=== PATIENT | male | born 1945 | race Caucasian/White ===

== ENCOUNTER 2024-12-14 10:07 | Outpatient (OUT) | payer MEDICARE, SELFPAY ==
--- OUTSIDE RECORDS SUMMARY | 2024-12-06 19:40 | XMS_ITS | Continuity of Care Document ---
Author Organization [facility] Address [address] [place] [address] Phone Care Team Providers Care Pipe Joints Supervisor Name Role Phone Davy Thompson DO Primary Care Provider Casimiro Arredondo MD Referring Provider [phone] Chelsea Kline [facility] Attending Provider Antonella Lock [facility] Attending Provider Unavailable Shayan Wiseman MD Attending Provider Care Teams Patient Care Team Team Status: Active Member Role/Relationship Status Dates Davy Thompson DO Primary Care Provider Active Visit Care Team Team Status: Inactive Member Role/Relationship Status Dates Davy Thompson DO Primary Care Provider Active St art: September 21, 2024 End: September 21, 2024HaRobert Tinsley ProviderActiveStart: September 21, 2024 End: September 21, 2024JaEdu Samson ProviderActiveStart: September 21, 2024 End: September 21, 2024 Visit Care Team Team Status: Inactive Member Role/Relationship Status Dates Davy Thompson DO Primary Care Provider Active St art: October 25, 2024 End: October 25, 2024DaSARAH Torresttending ProviderActiveStart: October 25, 2024 End: October 25, 2024HaCHELE Tinsleyeflarisaing ProviderActiveStart: October 25, 2024 End: October 25, 2024 Visit Care Team Team Status: Inactive Member Role/Relationship Status Dates Davy Thompson DO Primary Care Provider Active St art: October 25, 2024 End: October 25, 2024PaMayra Weinberg ProviderActiveStart: October 25, 2024 End: October 25, 2024 Visit Care Team Team Status: Inactive Member Role/Relationship Status Dates Davy Thompson DO Primary Care Provider Active St art: November 29, 2024 End: November 29, 2024HaGaby Tinsleying ProviderActiveStart: November 29, 2024 End: November 29, 2024JaSandra Samsonending ProviderActiveStart: November 29, 2024 End: November 29, 2024 Visit Care Team Team Status: Inactive Member Role/Relationship Status Dates Davy Thompson DO Primary Care Provider Active St art: December 06, 2024 End: December 06, 2024PaMayra Weinberg ProviderActiveStart: December 06, 2024 End: December 06, 2024 Chief Complaint and Reason for Visit Chief Complaint Admit Date INR f/u September 21, 2024 11 :34am INR f/u see [facility] October 25, 2024 10:58am R97.20 N40.1 Z80.42 October 25, 2024 11:23am R97.20 Z80.42 December 06, 2024 9 :38am Reason for Visit Admit Date Atrial fibrillation September 21, 2024 11 :34am Atrial fibrillation October 25, 2024 10:58am Atrial fibrillation November 29, 2024 1 :12pm Allergies, Adverse Reactions, Alerts Allergen Type Severity Reaction Last Updated Verified Status Comments sulfamethoxazole Allergy Unknown Nausea, dizziness, antsy feeling August 23, 2024 1:02pm Yes Active Onset Date: 07/24/2019 Social History Smoking Status Status Start Date End Date Date of Observa tion Ex-smoker (finding) November 27, 2021 7:22am Observation Status Observation Response Date of Response Legal Sex Male (finding) Sex Assigned [facility] 1945 Family History Relationship Condition Age at Onset Recorded Date/T karla brother Malignant neoplasm of prostate Unknown Malignant neoplasm of lymph nodeUnknownfatherMalignant neoplasm of prostate UnknownDeceasedUnknownmotherMalignant neoplasm of colonUnknownFamily history of mental disorderUnknownAlzheimer's diseaseUnknownDeceasedUnknownbrotherDeceased Unknown Problems Active Problems Problem Diagnosis/Recorded Date Onset Date Stat Family history of colon cancer October 21, 2020 9: 36am Unknown Active Atrial fibrillation July 01, 2018 6:08am Unknown Active Bleeding hemorrhoid August 25, 2023 1:23pm Unknown Active Fecal incontinence October 21, 2020 9:36am Unknown Active Blood in stool October 21, 2020 9:36am Unknown Active Medications Medication Status Dose Units Route Directions Qty Days Refills S tart Date Stop Date End Date Reason(s) Instructions Adherence Atorvastatin 20 mg tablet Discontinued 20 MG PO D aily August 06, 2017 12:00amFebruary 2023 3:56pmAtorvastatin 20 mg tabletActive 0PODailyFebruary 2023 3:94nu53za (1/2 tablet) orally daily;Unknown Oxycodone 5 mg capsuleDiscontinued5 - 75UADAS3H as needed for zfyh5420Hnj 2018December 2018 12:16pmSpondylosis of lumbar spine Spondylosis without myelopathy or radiculopathy, lumbar regionPolyethylene Glycol 3350 17 gram/dose npmhajOarkjiyacdqe21EYKACeiau2489Cwshytq 2020 12:00amOctober 2021 7:21amLidocaine 5 % jcisqmloZcqnnn7TIAPNWVBGRVVAZxmi times daily as needed for bjcm382Podbqtc 2020 12:00amUnknownPolyethylene Glycol 3350 17 gram/dose kvunuoFgdbcm16QFTXZpejn as needed for Constipation November 27, 2021 7:21amUnknownSimvastatin 80 MG urovpmJlxvqxroskal43PGJIQvshw January 08, 2017 1:00amJune 2017 6:44amWarfarin 4 mg TabletDiscontinued4 MGPO5 TIMES PER WEEKDe2016 1:00amFebruary 2023 3:56pmAtrial fibTakes 4 mg every day EXCEPT Wednesday and Potassium Chloride 20 MEQ tablet,ER particles/uookbomhOtlqba42KQONLQpapkOtwojojw 1st, 2017 1:00amUnknown Pantoprazole 40 MG tablet,delayed release (DR/EC)Addxpm14URUDHsthlVpuxtoyg 1st, 2017 1:00amGERDUnknownVerapamil 240 MG tablet extended cfvwtibEcfkixdqrihd623IR POEvery 2016 1:00amFebruary 2023 3:50pm Cholecalciferol (Vitamin D3) (Vitamin D3) 1,000 unit IarknvAaqsyq5754XVPFSUBuzyd January 08, 2017 1:00amUnknownWarfarin 4 mg fbnvuoIxbpyn4NXUXBh Directed March 24, 2023 3:54pmAtrial fibTake 1/2 tablet on and and 1 tablet all other days of the week or UD by the Coumadin ClinicUnknownCoenzyme Q10 (Co Q-10) 10 mg NwneguqJalwsa62GMLBJl DirectedJuly 2017 12:00amUnknown Ascorbic Acid (Vitamin C) (Vitamin C) 500 mg DxxwvwGgzymf944TREONiitqTqnv 2017 12:00amUnknownSaw Pal-Pumpkin Wf-Fwhd-J5-Zn (Saw Bennet Complex(Pumpk- Zn)) 764-81-74-15 mg KkkosexZiipnb4IAHIFScvkw dailyJuly 2017 12:00am Prostate healthUnknownWarfarin 2 mg LkxodlKlrfiekrxbqj0ZPLSLbzfp a WeekJuly 2017 12:00amFebruary 2023 3:51pmAtrial fib.Takes 2 mg on Wednesday and ;4 mg all other daysAspirin 81 mg Tablet,Delayed Release (Dr/Ec)Gmpnmr13 MGPOevery weekAugust 2017 12:00amUnknownAcetaminophen (Tylenol Extra Strength) 500 mg HwtwhoGyopxa5506TUROU0P as needed for PainAugust 2017 12:00amUnknownEzetimibe 10 mg pwfwbaUtmuvt60BRWISpaqtOsoenwnya 2020 12:00amUnknownFluticasone Propionate 50 mcg/actuation spray,suspensionActive1 SPRAYINTRANASALDailyJuly 2023 12:00amadminister into each nostrilUnknown Metoprolol Succinate 50 mg tablet extended release 24 wtNyxfxd5ANSUSIjjwm March 24, 2023 1:00amFreeTextSi tablet Orally Once a day; Note: Source Status: Taking; Provider: Eliud Tran ( )Unknown L.Rhamnosus-B.Animalis ([facility]) 3 billion cell capsuleActiveCAP PODailyAugust 2023 12:00amUnknownAmlodipine-Benazepril 5-10 mg capsule Gjhssx2IUXHDXjesxHzqqdymeu 2023 12:00amUnknown Immunizations Immunization Event Date Not Given Reason Dose Number Lead Presser Lot Number Reason(s) Given Vaccine Information Statement (VIS) Detail Administration Location COVID-19 mRNA-1273 (Moderna) April 06, 2020 COVID-19 mRNA-1273 (Moderna)May 04, 2020influenza, unspecified formulation November 10, 2017 Procedures Procedure Date Performed Status MR prostate wo/w con December 06, 2024 9:41am c ompleted Relevant Diagnostic Tests and/or Laboratory Data Laboratory Results Test Collection Date/Time Result Date/Time Result Interpretation Reference Range Result Comment Performing Site Bedside INR (LAB) September 21, 2024 11:59am September 21, 2 025 11:59am 2.3 Bedside INR (LAB)November 29, 2024 1:23pmOctober 2024 1:33pm2.4Prostate Specific Antigen TotalSeptember 2024 11:30amSeptember 2024 12:54pm 4.130 ng/mLAbove high normal0.000-4.000Serial tumor marker results determined by assays using different manufacturers or methods may not be comparable.[facility] Laboratory mechanic field service and method:[employer] Keyboard DXI, CHEMILUMINESCENT IMMUNO ASSAY.[facility] [id number] [address] [place] [address] 96838Dxamrpr CreatinineOctober 2024 9:58amOctober 2024 11:17am1.2 mg/dL0.6-1.3ER/ESD physician is notified/shown all ISTAT results.Critical values may be confirmed by laboratorytesting ifdeemed necessary by ER attending doctor.[facility] [id number] [address] [place] [address] [id number] Estimated GFR (eGFR)December 06, 2024 9:58amOctober 2024 11:17am> 60.0[facility] [id number] [address] [place] [address] Diagnostic Imaging Reports Author Herman Keene [facility] HospitalReport Date/TimeOctober 2024 2:10pm [facility] [place] [address] [place] [id number] MRI Report Signed Patient: Samy Berry MR#: [id number] : 1945 Acct:[id number] Age/Sex: 79 / M ADM Date: 5 Loc: MR Room: Type: [facility] Attending Dr: Shayan Wiseman MD Copies to: Shayan Wiseman MD~ Ordering Provider: Shayan Wiseman MD Date of Service: 12/06/24 MR/MR prostate wo/w con: R97.20,Z80.42 EXAMINATION: MR prostate wo/w con HISTORY: ELEVATED PSA COMPARISON: NONE TECHNIQUE: Multiparametric imaging of the prostate gland was performed with IV contrast. FINDINGS: Prostate Dimensions: 4.4 x 4.1 x 4.7 cm Prostate Volume: 44 mL. Peripheral Zone: Heterogenous inT2 signal suggestive of prior prostatitis. Nosuspicious T2 or ADC map abnormality is identified to suggest prostate malignancy. Central/Transitional Zone: BPH changes. Ill-defined area of T2 hypointensity is seen involving the anterior aspect of the right transitional zone measuring 9x 7 mm with associated restricted diffusion and low ADC value. Please see series 417, series 650 image 14 and series 600 image 14. Seminal Vesicles: Unremarkable Neurovascular bundles: Unremarkable. Lymphadenopathy: No evidence of lymphadenopathy. Bladder: Questionable small bladder polyp versus mass involving the posterior right lateral wall ofthe urinary bladder measuring 7 mm in greatest axial dimension. Bladder peace overall trabeculated. Bowel: Diverticulosis. Peritoneal Cavity: Small amount of free fluid. Bones: No suspicious bony lesion. MR/MR prostate wo/w con IMPRESSION: Ill-defined area of T2 hypointensity is seen involving the anterior aspect of the right transitional zone measuring 9 x 7 mm with associated restricted diffusion and low ADC value. Please see series 417, series 650 image 14 and series 600 image 14. PI-RADS 4. Targeting of this area on biopsy is recommended. Questionable small bladder polyp versus mass involving the posterior right lateral wall of the urinary bladder measuring 7 mm in greatest axial dimension. This can be further evaluated by cystoscopy. Impression dictated by: Herman Keene Jr., D.OVioleta 12/06/2024 2:10 PM Dictation Location: [place] [address] Transcribed By: [facility] 12/06/24 1410 Dictated By: Herman Keene Jr, DO 12/06/24 1404 Signed By: <Electronically signed by Herman Keene Jr, DO in OV> 12/06/24 1410 Vital Signs Vital Reading Result Reference Range Collection Date/Time Height 68 [in_i] December 06, 2024 9:00stHnpvnm16.01 kgOctober 2024 9:51am Advance Directives Advance Directive Response Recorded Date/ Time Advance Directives No December 2:16pm Insurance Providers Guarantor Samy Jennifer Berry Address [address] [address]Hklimkp Info.Home Phone: Payer Group Member ID Coverage Type Subscriber Relationship to Subscriber Effective Date Expiration Date MMO Id: [id number] J Sidoti Id: [id number] [address] [address] Home Phone: Email: DECLINED 19[employer] [id number] J Sidoti Id: [id number] [address] [address] Home Phone: Email: DECLINED 19Self Encounters Encounter Location(s) Arrival/Admit Date Discharge/Departure Date Discharge/Departure Disposition Provider(s) Departed Physician/ Provider Office Visit -[facility] September 21, 2024 11:34am September 21, 2024 11:59am Discharged to home care or self care (routine discharge) Chelsea Kline RPH Departed Physician/ Provider Office Visit -[facility] October 25, 2024 10:58am October 25, 2024 11:18am Discharged to home care or self care (routine discharge) Antonella Purvis RPH Departed Clinical -[facility] October 25, 2024 11:23am October 25, 2024 11:24am Discharged to home care or self care (routine discharge) Shayan Wiseman MD Departed Physician/ Provider Office Visit -[facility] November 29, 2024 1:12pm November 29, 2024 1:34pm Discharged to home care or self care (routine discharge) Chelsea Kline RPH Departed Clinical -[facility] December 06, 2024 9:38am December 06, 2024 9:39am Discharged to home care or self care (routine discharge) Shayan Wiseman MD Recent Diagnosis Onset Date Admit Date Atrial fibrillation Unknown September 21, 2024 11:34am Atrial fibrillation Unknown October 252024 10:58am Atrial fibrillation Unknown November 1:12pm Assessments Diagnosis Onset Date Resolution Status Admit Date [place]rial [place] 11:34amAtrial fibrillationacuteSeptember 2024 10:58amAtrial fibrillationacuteOctober 2024 1:12pm Plan of Treatment Author Chelsea Kline [facility] 2024 11:58amReferring Provider: Dr. Casimiro Arredondo Diagnosis: Atrial Fibrillation INR Goal: 2-3 INR: 2.3 Warfarin Tablet Size: 4mg Wednesday: 4mg Wednesday: 4mg Wednesday: 2mg Wednesday: 4mg : 2mg Wednesday: 4mg Wednesday: 4mg Total Weekly Dose: 24mg Continue plan above. Follow up in 5 weeks per patient preference. Seen By: Aurelia Kline RPh Author Antonella Purvis [facility] 2024 11:17amReferring Provider: Dr. Casimiro Arredondo Diagnosis: Atrial Fibrillation INR Goal: 2-3 INR: 2.9 Warfarin Tablet Size: 4mg Wednesday: 4mg Wednesday: 4mg Wednesday: 2mg Wednesday: 4mg : 2mg Wednesday: 4mg Wednesday: 4mg Total Weekly Dose: 24mg Continue plan above. Follow up in 5 weeks per patient preference. Patient finished Medrol Dosepak yesterday and is feeling better. He followed the warfarin adjustment as instructed (see [facility] message below from 10/20). On 10/20/24 @ 09:20 Chelsea Kline Wrote To [facility] Pharmacists Spoke to patient. Patient reports neck pain and taking several doses of APAP daily in addition to the new medications. DDI with APAP and methylprednisolone and pain can potentially increase INR. Patient will reduce Sat 10/21 dose to 2mg and maintain f/u on 10/25. Patient verbalized understanding. Seen By: Antonella Purvis RPh Author Chelsea Kline [facility] HospitalAuthoredOctrockcastle [facility] 2024 1:29pmReferring Provider: Dr. Casimiro Arredondo Diagnosis: Atrial Fibrillation INR Goal: 2-3 INR: 2.4 Warfarin Tablet Size: 4mg Wednesday: 4mg Wednesday: 4mg Wednesday: 2mg Wednesday: 4mg : 2mg Wednesday: 4mg Wednesday: 4mg Total Weekly Dose: 24mg Continue plan above. Follow up in 5 weeks per patient preference. Seen By: Aurelia Kline RPh Future Tests Future scheduled test information is unavailable Pending Tests Pending diagnostic test information is unavailable Future Visits Future appointment information is unavailable Future Procedures Procedure Name Ordered Date Scheduled Date AMB POC INR October 25, 2024 11:03am Future Medications Future medication information is unavailable Patient Instructions Patient instructions are unavailable
--- OUTSIDE RECORDS SUMMARY | 2024-12-14 10:11 | XMS_ITS | Clinical Summary ---
Author Organization [facility] Address [address] [place] [address] Phone Care Team Providers Care Graphite Disk Assembler Name Role Phone Davy Thompson DO Primary Care Provider [phone] Allergies Active AllergyReactionsCriticalityNoted DateCommentsMetronidazoleUnknown 12/09/2022Sulfa (Sulfonamide Antibiotics)Headache,Nausea Only12/09/2022 Medications MedicationSigDispense QuantityRefillsLast FilledStart DateEnd DateStatus ascorbic acid, vitamin C, 500 mg capsule Take 1 capsule by mouth once daily.Active aspirin 81 mg EC tablet Take 1 tablet (81 mg) by mouth 1 (one) time per week.Active cholecalciferol (Vitamin D3) 50 mcg (2,000 unit) capsule Take 1 capsule (50 mcg) by mouth once daily.Active clotrimazole-betamethasone (Lotrisone) cream Apply topically 2 times a day. to affected area01/19/2022ctive fluticasone (Flonase) 50 mcg/actuation nasal spray Administer 2 sprays into affected nostril(s) once daily.06/28/2022ctive triamcinolone (Kenalog) 0.1 % cream Apply topically 2 times a day.10/22/2022ctive ubidecarenone (COENZYME Q10, BULK, MISC) Take 1 capsule by mouth once daily.Active warfarin (Coumadin) 4 mg tablet Indications:Chronic atrial fibrillation (Multi)Take 1 tablet (4 mg) by mouth see administration instructions. DIRECTED PER [facility] 60 tablet ctive ezetimibe (Zetia) 10 mg tablet Indications:Mixed hyperlipidemiaTake 1 tablet (10 mg) by mouth once daily. 90 tablet ctive amLODIPine-benazepriL (LotreL) 5-10 mg capsule Indications:Essential hypertensionTake 1 capsule by mouth once daily. 90 capsule ctive atorvastatin (Lipitor) 20 mg tablet Indications:Mixed hyperlipidemiaTake 0.5 tablets (10 mg) by mouth once daily. 45 tablet ctive metoprolol succinate XL (Toprol-XL) 50 mg 24 hr tablet Indications:Permanent atrial fibrillation (Multi)Take 1 tablet (50 mg) by mouth once daily. Do not crush or chew. 90 tablet ctive pantoprazole (ProtoNix) 40 mg EC tablet Indications:History of stroke,AnticoagulatedTake 1 tablet (40 mg) by mouth once daily. 90 tablet ctive potassium chloride CR (Klor-Con M20) 20 mEq ER tablet Indications:Essential hypertension,Edema, unspecified typeTake 1 tablet (20 mEq) by mouth once daily. 90 tablet ctive Active Problems ProblemNoted DateDiagnosed DateFormer wqxjoc154Carotid bruit present 12/09/2022hronic atrial nyclkwfivibf22/01/2023Essential akzkwkwaeooq70/01/2023 GERD (gastroesophageal reflux disease)12/09/20229040Bxometlphebeka56/01/2023 Fpnsdhaqakbcow03/01/2023hest pain12/09/20224208Ujvgd92/01/2023MI 26.0-26.9,adult 12/09/2022 Resolved Problems ProblemNoted DateDiagnosed DateResolved DateHigh risk medication use12/09/2022 09/22/2024Overweight with body mass index (BMI) of 26 to 26.9 in adult12/09/2022 12/09/2022Overweight with body mass index (BMI) of 27 to 27.9 in adult12/09/2022 12/09/2022 Encounters DateTypeDepartmentCare LkmuYaxqbazssjl81/15/2025 1:50 PM EDTOffice Visit [place] [id number] [address] [address] Casimiro Arredondo MD Permanent atrial fibrillation (Multi) (Primary Dx); Essential hypertension; History of stroke; Mixed hyperlipidemia; Anticoagulated; BMI 26.0-26.9,adult; Former smoker; Edema, unspecified type; Pulmonary hypertension, unspecified (Multi); Moderate tricuspid regurgitation Discharge Disposition: Home09/22/2024Travelfrom Last 3 Months Immunizations ImmunizationAdministration DatesNext DueFlu vaccine (IIV4), preservative free *Check age/dose*11/20/2019Flu vaccine, quadrivalent, high-dose, preservative free, age 65y+ (FLUZONE)12/11/2020,10/26/2019Flu vaccine, trivalent, preservative free, HIGH-DOSE, age 65y+ (Fluzone)10/20/2023,11/21/2018,11/10/2017 ,11/09/2016,10/30/2015Influenza, Seasonal, Quadrivalent, Ublevlbiom21/09/2023, 12/03/2021Influenza, seasonal, ejcmkxrtqh53/26/2022,11/09/2019Moderna COVID-19 vaccine, bivalent, blue cap/anne label *Check age/dose*12/15/2021Moderna SARS-CoV-2 Soewzcuodfy98/28/2021,05/06/2020,05/04/2020,04/06/2020,04/06/2020 Pneumococcal conjugate vaccine, 13-valent (PREVNAR 13)06/09/2016Pneumococcal polysaccharide vaccine, 23-valent, age 2 years and older (PNEUMOVAX 23) 11/09/2013Tdap vaccine, age 7 year and older (BOOSTRIX, ADACEL)09/11/2024Zoster vaccine, recombinant, adult (SHINGRIX)10/17/2018 Family History Medical HistoryRelationNameCommentsNo Known ProblemsFatherNo Known Problems MotherRelationNameStatusCommentsFatherMother Social History Tobacco UseTypesPacks/DayYears UsedDateSmoking Tobacco: FormerCigarettesQuit: 1995Smokeless Tobacco: Never Tobacco Cessation:Counseling Given: Not Answered Alcohol UseStandard Drinks/WeekCommentsYes0 (1 standard drink = 0.6 oz pure alcohol)occasional beerSex and Gender InformationValueDate RecordedSex Assigned at BirthNot on fileLegal PtkItjj79/25/2022 6:12 PM ESTGender IdentityNot on file Sexual OrientationNot on file Last Filed Vital Signs Vital SignReadingTime TakenCommentsBlood Ndeniyap487/7208/ 1:47 PM EDT Wpcul3327 1:47 PM EDTTemperature--Respiratory Rate--Oxygen Saturation-- Inhaled Oxygen Concentration--Shjfqf52.5 kg (173 lb)09/22/2024 1:47 PM EDTHeight 172.7 cm (5' 8 )09/22/2024 1:47 PM EDTBody Mass Index26.308 1:47 PM EDT Plan of Treatment DateTypeDepartmentCare Team (Latest Contact Info)Pjvhysgeqcu26/14/2026 11:30 AM ESTOffice [facility] [address] [facility] [address] [place] [address] Casimiro Arredondo MD [address] [facility] [address] [place] [address] Health MaintenanceDue DateLast DoneCommentsHepatitis C Rjqcudclc36/02/1964Zoster Vaccines (2 of 2)RSV High Risk: (Elderly (60+) or Population) (1 - 1-dose 75+ series)1Diabetes Teqtvuvdw66/19/2022 06/26/2020, 07/13/2019, 01/02/2019, Additional history existsInfluenza Vaccine (#1)509/12/2023, 11/16/2022, 12/03/2021, Additional history exists COVID-19 Vaccine ( season)511/08/2021, 12/05/2020, 05/06/2020, Additional history existsMedicare Annual Wellness Visit (AWV) /, 12/03/2022, 06/30/2021, Additional history existsLipid Panel, 01/17/2024, 07/19/2023, Additional history exists DTaP/Tdap/Td Vaccines (2 - Td or Tdap)Pneumococcal Vaccine Hvzthjnkp89/02/2017, 11/09/2013Irritable Bowel SnxcoluoDhjvxrmwmaza33/13/2021, 10/21/2020Welcome to Medicare RfolfLbrmbugflwap27/17/2024, 12/03/2022, 06/30/2021, Additional history existsHIB VaccinesAged OutNo longer eligible based on patient's age to complete this topicHPV VaccinesAged OutNo longer eligible based on patient's age to complete this topicHepatitis A VaccinesAged OutNo longer eligible based on patient's age to complete this topicHepatitis B VaccinesAged OutNo longer eligible based on patient's age to complete this topic IPV VaccinesAged OutNo longer eligible based on patient's age to complete this topicMeningococcal VaccineAged OutNo longer eligible based on patient's age to complete this topicRotavirus VaccinesAged OutNo longer eligible based on patient's age to complete this topic Procedures Procedure NamePriorityDate/TimeAssociated DiagnosisCommentsHEMOGLOBIN K2QReduglz 06/26/2020 10:00 AM EDT LIPID TXVOJYsangya65/05/2020 9:30 AM EST from Last 3 Months or Most Recently Relevant to Health Maintenance Results * Hemoglobin A1C (06/26/2020 10:00 AM EDT)ComponentValueRef RangeTest Method Analysis TimePerformed AtPathologist SignatureHemoglobin A1C5.5%[facility] Comment: ? Diagnosis of Diabetes-Adults Non-Diabetic: < or = 5.6% Increased risk for developing diabetes: 5.7-6.4% Diagnostic of diabetes: > or = 6.5% . ? Monitoring of Diabetes ?Age (y) ? Therapeutic Goal (%) Adults: >18 <7.0 Pediatrics: 13-18 <7.5 7-12 <8.0 ? 0- 6 ?7.5-8.5 [place] [employer]. Diabetes Care 33(S1), Feb 2009. Estimated Average Wuoasbj757YJ/DLELLWOOD MEDICAL CENTER LABSpecimen (Source)Anatomical Location / LateralityCollection Method / VolumeCollection TimeReceived Time06/26/2020 10:00 AM EDT06/26/2020 9:14 PM EDT Narrative Authorizing ProviderResult TypeResult StatusPaul Herman Thompson [facility] BLOOD ORDERABLESFinal ResultPerforming OrganizationAddressCity/State/ZIP CodePhone Number [facility] * Lipid Panel (12/14/2019 9:30 AM EST)ComponentValueRef RangeTest MethodAnalysis TimePerformed AtPathologist NrvtijnaaZulsqppbjqe9329 - 199 mg/dLAD[facility] LABComment: . ?AGE ?DESIRABLE ?? BORDERLINE HIGH ?? HIGH 0-19 Y 0 - 169 170 - 199 >/= 200 20-24 Y 0 - 189 190 - 224 >/= 225 >24 Y 0 - 199 200 - 239 >/= 240 All ranges are based on fasting samples. Specific therapeutic targets will vary based on patient-specific cardiac risk. . Pediatric guidelines reference:Pediatrics 2011, 128(S5). Adult guidelines reference: NCEP ATPIII Guidelines, ??JOAN 2001, 258:2486-97 . Venipuncture immediately after or during the administration of Metamizole may lead to falsely low results. Testing should be performed immediately prior to Metamizole dosing. HDL59.0mg/dLADVENTHEALTH [facility] LABComment: . ?AGE ?VERY LOW ?? LOW ? NORMAL ?HIGH ?? 0-19 Y < 35 < 40 40-45 ---- 20-24 Y ---- < 40 >45 ---- >24 Y ---- < 40 40-60 >60 . Cholesterol/HDL Ratio2.9[facility] LABComment: REF VALUES DESIRABLE < 3.4 HIGH RISK > 5.0 NOH051 - 99 mg/dLADVENT[facility] LABComment: . ? NEAR ?BORD ?AGE ?DESIRABLE ??OPTIMAL ?HIGH ? HIGH ? VERY HIGH 0-19 Y 0 - 109 --- 110-129 >/= 130 ---- 20-24 Y 0 - 119 --- 120-159 >/= 160 ---- >24 Y 0 - 99 100-129 130-159 160-189 >/=190 . BTOH058 - 40 mg/dLAD[facility] JDASysrpwfptdazo818 - 149 mg/dLAD[facility] LABComment: . ?AGE ?DESIRABLE ?? BORDERLINE HIGH ?? HIGH ? VERY HIGH 0 D-90 D ?19 - 174 ? ---- ? ---- ?---- 91 D- 9 Y 0 - 74 75 - 99 >/= 100 ---- 10-19 Y 0 - 89 90 - 129 >/= 130 ---- 20-24 Y 0 - 114 115 - 149 >/= 150 ---- >24 Y 0 - 149 150 - 199 200- 499 >/= 500 . Venipuncture immediately after or during the administration of Metamizole may lead to falsely low results. Testing should be performed immediately prior to Metamizole dosing. Specimen (Source)Anatomical Location / LateralityCollection Method / Volume Collection TimeReceived Time12/14/2019 9:30 AM EST12/14/2019 6:01 PM EST Narrative Authorizing ProviderResult TypeResult StatusWiliz Almazan [facility] BLOOD ORDERABLESFinal ResultPerforming OrganizationAddressCity/State/ZIP CodePhone Number [facility] from Last 3 Months or Most Recently Relevant to Health Maintenance Insurance MemberSubscriberPlan / Payer (Effective 2021-Present)Name:Samy Berry Jennifer Relation to Subscriber:SelfName:Samy Berry Payer ID:Not on file Type:Not on file Address: [address] [place] [id number] MemberSubscriberPlan / Payer (Effective 2021-Present)Name:Samy Berry Jennifer Relation to Subscriber:SelfName:Samy Berry Payer ID:Not on file Type:Not on file Address: [address] [place] [id number] Care Teams Team MemberRelationshipSpecialtyStart DateEnd Davy Thompson DO [address] [place] [address] [facility]05/17/18
--- OUTSIDE RECORDS SUMMARY | 2024-12-14 10:11 | XMS_ITS | Clinical Summary ---
Author Organization [facility] Address [address] [place] [address] Care Team Providers Care Assistant Program Manager Name Role Phone Davy Thompson DO Unavailable [phone] Pk Fong DO Primary Care Provider [phone] Allergies Active AllergyReactionsCriticalityNoted HomiZragnyrkHfarejprictmq94/01/2023 Other Reaction(s): Unknown Sulfa AntibioticsHeadache,Nausea Only07/31/2022 Other Reaction(s): Nausea, dizziness, antsy feeling Sulfamethoxazole-Tnkjofvlypef31/15/2020 Other Reaction(s): dizziness, antsy feeling Cnfiatgkfkmw54/23/2023 Other Reaction(s): Nausea, dizziness, antsy feeling Medications MedicationSigDispense QuantityRefillsLast FilledStart DateEnd DateStatus coenzyme Q-10 60 MG capsule 1 (one) time each day at the same time.Active atorvastatin (Lipitor) 20 MG tablet 1 (one) time each day at the same time.Active ezetimibe (Zetia) 10 MG tablet TAKE 1 TABLET BY MOUTH ONCE DAILY -- NEW STARTActive fluticasone (Flonase) 50 MCG/ACT nasal spray USE 2 SPRAYS IN LEFT NOSTRIL ONCE A DAY JAIYWBCL98/21/2023ctive pantoprazole (ProtoNix) 40 MG EC tablet Take 40 mg by mouth in the morning.Active warfarin (Coumadin) 4 MG tablet OralActive KLOR-CON 20 MEQ ER tablet Take 20 mEq by mouth in the morning.09/30/2022ctive colchicine 0.6 MG tablet Indications:Acute gout involving toe of left foot, unspecified cause1.2 mg PO x1, then 0.6 mg PO 1h later x1 3 tablet 12/03/2022ctive metoprolol succinate XL (Toprol-XL) 50 MG 24 hr tablet Indications:Essential hypertensionTake 1 tablet (50 mg) by mouth in the morning. Do not crush or chew..01/26/2023ctive aspirin 81 MG EC tablet Take 81 mg by mouthActive Ascorbic Acid (Vitamin C) 500 MG capsule Take 1 capsule by mouth in the morning.Active cholecalciferol (Vitamin D-3) 50 MCG (2000 UT) capsule Take 50 mcg by mouth in the morning.Active clotrimazole-betamethasone (Lotrisone) cream Indications:Candidal balanitisAPPLY TO AFFECTED AREA TWICE DAILY 45 g 4Active amLODIPine-benazepril (Lotrel) 5-10 MG capsule 1 kyupxja7710/04/2023ctive amoxicillin (Amoxil) 875 MG tablet Indications:Acute bronchitis, unspecified organism1 po bid until all taken. 20 tablet 5Active Additional Information Patient not taking.Reported on 10/19/2024 benzonatate (Tessalon) 200 MG capsule Indications:Acute cough1 capsule po tid prn cough. Do not crush or chew. 21 capsule 5Active Additional Information Patient not taking.Reported on 10/19/2024 methocarbamol (Robaxin) 750 MG tablet Indications:Strain of neck muscle, initial encounter1 or 2 at bedtime 20 tablet 5Active metroNIDAZOLE (Metrogel) 1 % gel Indications:Other rosaceaApply a thin layer to the face topically every day. 30 days 45 g 1105Active triamcinolone (Kenalog) 0.1 % cream Indications:Stasis dermatitis of both legsApply thin layer to affected areas on the legs twice a day as needed for flares. 30 days 454 g 1095Active Active Problems ProblemNoted DateDiagnosed DateBenign prostatic doomfvhrewa74/19/2023enign prostatic hyperplasia with urinary aobpecntufg09/19/2023erebrovascular accident (CVA)10/27/2022astroesophageal reflux wwgmhtj0410/27/2022High prostate specific antigen (PSA)10/27/2022History of anticoagulant xyblcwm9210/27/2022Nocturia 10/27/2022ost-void zgffnmyqn98/19/2023Spinal vnrlgihf82/19/2023Hypertension 10/27/20225458Lfprnobgmosisz88/19/2023llergic iuyqlkmf22/20/9014Dujdoxnez09/20/2023 Chronic atrial ysweywfccgxy49/20/2023Essential hhfpzxhdldqe14/20/2023Mixed conductive and sensorineural hearing loss of left ear with restricted hearing of right ear07/28/2022Mixed eejivkefdcpowg87/20/7682Vagh26/20/2023Other chronic pain07/28/2022cne tppezbb1207/28/20225713Nrtlfuooundz83/20/4560Vviurij58/20/2018 Perioral uldhgyvmds87/12/2018Acquired trigger jgxzwb8808/17/2017Lumbosacral spondylosis without /29/2018Chronic pain05/06/2017 Encounters DateTypeDepartmentCare UuslLdaezxtopgi56/15/2025 1:10 PM EDTOffice Visit [facility] [address] [place] [address] Cherri Beatty, FIELD HORTICULTURAL SPECIALTY GROWER-ENGINEER EXHAUSTER Seborrheic keratosis; Lentigines; Inflamed seborrheic keratosis; Other rosacea; Stasis dermatitis of both legs; History of actinic jmqakabmy63/15/2025Refill [facility] [address] [place] [address] Cherri Beatty, FIELD HORTICULTURAL SPECIALTY GROWER-ENGINEER EXHAUSTER Other vzoqqpv4710/23/2024amboo flowsheet [facility] [address] [place] [address] Cherri Beatty, FIELD HORTICULTURAL SPECIALTY GROWER-ENGINEER EXHAUSTER 10/23/20241107Judzuw59/11/2025 11:00 AM EDTAncillary Procedure [facility] [address] [place] [address] 10/19/2024 10:10 AM EDTOffice Visit [facility] [address] [place] [address] Perry Iraheta DO Strain of neck muscle, initial encounter; Cervical paraspinal muscle spasm; History of atrial fibrillation; History of Coumadin oxcjqcd3110/19/20247969Undvlg32/14/2025bstract [facility] [address] [place] [address] Pk Fong DO from Last 3 Months Immunizations ImmunizationAdministration DatesNext DueInfluenza, High Dose Seasonal, Preservative Free11/21/2018,11/10/2017,11/09/2016,10/30/2015Influenza, High-dose Seasonal, Quadrivalent, Preservative Free12/11/2020,10/26/2019Influenza, Seasonal, Quadrivalent, Mrginhydbg67/09/2023,12/03/2021Influenza, injectable, quadrivalent, preservative free11/20/2019Influenza, seasonal, injectable 11/09/2019Pneumococcal Conjugate PCV 13006/09/2016Pneumococcal Polysaccharide SALS25548409XJAD-UZV-4 (COVID-19) vaccine, mRNA, spike protein, LNP, bivalent, PF12/15/2021Zoster, Hwwjpcbzkoe90/09/2019 Family History Medical HistoryRelationNameCommentsNo Known TeulblbrQeuskou0UagxxpIdheugCgvzas MotherMental illnessMotherNo Known EclbxvmkWyv1WydfxuvlChdnBifquvObpkltafQvhgstm 8UcvwlgXybrgblqLloqqdCffryrpkZrd7Wbqqd Social History Tobacco UseTypesPacks/DayYears UsedDateSmoking Tobacco: NeverPassive Smoke Exposure: NeverSmokeless Tobacco: Never Tobacco Cessation:Counseling Given: Not Answered Alcohol UseStandard Drinks/WeekCommentsNever0 (1 standard drink = 0.6 oz pure alcohol)AUDIT-CAnswerDate RecordedQ1: How often do you have a drink containing alcohol?Never12/03/2022Q2: How many drinks containing alcohol do you have on a typical day when you are drinking?Patient does not drink12/03/2022Q3: How often do you have six or more drinks on one occasion?Never12/03/2022HQ-2AnswerDate RecordedPatient Health Questionnaire-2 Panwm034/17/2024Sex and Gender InformationValueDate RecordedSex Assigned at BirthNot on fileLegal SexMale 04/22/2022 6:49 PM EDTGender IdentityNot on fileSexual OrientationNot on file Last Filed Vital Signs Vital SignReadingTime TakenCommentsBlood Imeukoat406/8810/19/2024 10:18 AM EDT Qurej316410/19/2024 10:18 AM MDWAoaxbxktpqu01 ??C (98.6 ??F)10/19/2024 10:18 AM EDTRespiratory Rate--Oxygen Mwcdcbattz61%10/19/2024 10:18 AM EDTInhaled Oxygen Concentration--Hebeth35.4 kg (175 lb)10/19/2024 10:18 AM VLFLmfmuv507.7 cm (5' 8 )08/03/2024 10:25 AM EDTBody Mass Index26.61008/03/2024 10:25 AM EDT Plan of Treatment DateTypeDepartmentCare Team (Latest Contact Info)Lqdecwnelwe82/22/2025 2:00 PM ESTOffice Visit [facility] [address] [place] [address] Davy Thompson DO [address] [place] [address] 01/29/2025 2:20 PM ESTOffice Visit [facility] [address] [place] [address] Elen Britt, PALAK [address] [place] [address] 10/22/2025 1:00 PM EDTOffice Visit [facility] [address] [place] [address] Cherri Beatty APRN-DIMPLE [address] [place] [address] Health MaintenanceDue DateLast DoneCommentsCOVID-19 Vaccine ( season) 5102/14/2021, 12/05/2020, 05/04/2020, Additional history existsInfluenza Vaccine (#1)509/12/2023, 11/16/2022, 12/03/2021, Additional history existsMedicare Annual Wellness (AWV)5103/27/2023, 12/03/2022, 06/30/2021 Pneumococcal Vaccine: 65+ DisfdIpjxslvhv37/02/2017, 11/09/2013 Procedures Procedure NamePriorityDate/TimeAssociated DiagnosisCommentsCRYOTHERAPY SKIN QMJFBASqelxkn43/15/2025 1:14 PM EDT Inflamed seborrheic keratosis XR CERVICAL SPINE COMPLETE 4-5 UOFKFZVBA21/11/2025 11:09 AM EDT Strain of neck muscle, initial encounter from Last 3 Months Results * Cryotherapy, skin lesion (10/23/2024 1:14 PM EDT) Narrative Authorizing ProviderResult TypeResult StatusNatalie Francisca Beatty FIELD HORTICULTURAL SPECIALTY GROWER-CNPDERM PROCEDURE ORDERABLESFinal Result * XR cervical spine complete 4 to 5 views (10/19/2024 11:09 AM EDT)Anatomical RegionLateralityModalitySpine, C-spineRadiographic ImagingSpecimen (Source) Anatomical Location / LateralityCollection Method / VolumeCollection Time Received Time10/19/2024 11:29 AM EDT Impressions 10/19/2024 11:30 AM EDT No acute osseous findings. Degenerative changes. ELECTRONICALLY SIGNED BY: Moshe Robin MD Narrative 10/19/2024 11:30 AM EDT EXAMINATION/TECHNIQUE: XR CERVICAL SPINE COMPLETE 4-5 VIEWS HISTORY: Neck pain and stiffness. COMPARISON: None RESULT: Counting Reference: Craniocervical junction. Straightening of the cervical lordosis. Alignment otherwise near-anatomic. No radiographic evidencefor acute fracture. Vertebral body heights maintained. Multilevel disc height loss with endplate osteophytes. Facet/uncovertebral degenerative changes. Multilevel bony foraminal narrowing especially of the mid to lower cervical spine. Paraspinal soft tissues unremarkable. Lung apices clear. Procedure Note Moshe Robin MD - 10/19/2024 EXAMINATION/TECHNIQUE: XR CERVICAL SPINE COMPLETE 4-5 VIEWS HISTORY: Neck pain and stiffness. COMPARISON: None RESULT: Counting Reference: Craniocervical junction. Straightening of the cervical lordosis. Alignment otherwise near-anatomic.No radiographic evidence for acute fracture. Vertebral body heightsmaintained. Multilevel disc height loss with endplate osteophytes.Facet/uncovertebral degenerative changes. Multilevel bony foraminalnarrowing especially of the mid to lower cervical spine. Paraspinal softtissues unremarkable. Lung apices clear. IMPRESSION: No acute osseous findings. Degenerative changes. ELECTRONICALLY SIGNED BY: Moshe Robin MD Authorizing ProviderResult TypeResult StatusAnthmichael Iraheta DOIMG XR PROCEDURESFinal Result from Last 3 Months Insurance Care Teams Team MemberRelationshipSpecialtyStart DateEnd Davy Thompson DO [address] [address] PCP - ACO 07/02/22 Pk Fong DO [address] [facility] [address] [place] [phone] [facility]07/28/22
--- OUTSIDE RECORDS SUMMARY | 2024-12-14 10:11 | XMS_ITS | Patient Health Record ---
Author Organization [facility] Address [address] [place], [place] [address] Care Team Providers Care Nuclear Security Officer Name Role Phone Jarad Lopez Primary Care Provider [phone] Reason For Referral No Information Medications Medication SIG (Take, Route, Frequency, Duration) Notes Start Date End Date Status Tessalon Perles 100 MG 1 capsule as need ed Orally Three times a day; Duration: as needed 04/14/2012ctiveVentolin HFA 108 (90 Base) MCG/ACT2 puffs as needed Inhalation every 4 hrs; Duration: as jcydeb1004/14/2012ctiveWarfarin SodiumActiveAugmentin 875-125 MG1 tablet Orally Twice a day; Duration: 10 day(s)04/14/2012ctive Vitamin DActiveCo Q 10ActiveVerapamil HClActiveSimvastatinActivePotassium Chloride CRActiveNexIUMActive Problems Problem Type SNOMED Code ICD Code Onset Dates Problem Status W/U Status Risk Notes Problem Acute pharyngitis (446084682) Acute phary ngitis (462) ActiveconfirmedProblemAcute bronchitis (72720771)Acute bronchitis (466.0)Active confirmed Plan Of Treatment Pending Test Test Name Order Date Quick Strep Test In-House 04/14/2012 Insurance Providers Payer Name Payer Address Payer Phone Subscriber Number Group Number Insured Name Patient Relationship to Insured Coverage Start Date Coverage End Date MEDICARE (F) [address] [place] [address] [id number] Celena Berry - patient is the insuredMedical [place] [facility] [place] [phone], SamuelSelf - patient is the insured Medical (General) History Medical History History ICD Code stroke/1995 arterial fibulationSurgical History Surgery Date(Month/Year) knee, left Hospitalization History Reason Date(Month/Year) stroke pneumonia
--- OUTSIDE RECORDS SUMMARY | 2024-12-14 10:11 | XMS_ITS | Encounter Summary ---
Author Organization [facility] Address [address] [place] [address] Phone Care Team Providers Care Vaccine Specialist Name Role Phone Davy Thompson DO Primary Care Provider [phone] Encounter Details DateTypeDepartmentCare Team (Latest Contact Info)Bcruxpwyxcg34/02/1946Orders Only [facility] [address] [place] [address] Scanning, Generic Provider Social History Tobacco UseTypesPacks/DayYears UsedDateSmoking Tobacco: Never AssessedSex and Gender InformationValueDate RecordedSex Assigned at BirthNot on fileLegal Sex Male01/02/2022 6:12 PM ESTGender IdentityNot on fileSexual OrientationNot on filedocumented as of this encounter Plan of Treatment DateTypeDepartmentCare Team (Latest Contact Info)Xqlekpxcesr41/14/2026 11:30 AM ESTOffice Visit [facility] [address] [facility] [address] [place] [address] Casimiro Arredondo MD [address] [facility], [address] [place], [place] [address] NameTypePriorityAssociated DiagnosesOrder ScheduleOUTSIDE LAB SCANLabOrdered: 1945documented as of this encounter Visit Diagnoses Not on filedocumented in this encounter Care Teams Team MemberRelationshipSpecialtyStart DateEnd Date Davy Thompson DO [address] [place] [address] [facility] - General05/17/18documented as of this encounter
== END 2024-12-14 10:08 | disposition home or self-care (01) ==
LOC: PST 10:07
PROVIDERS: Visit Provider Urology
DX: Z01.818 Encounter for other preprocedural examination (principal); R97.20 Elevated prostate specific antigen [PSA]

== ENCOUNTER 2024-12-19 08:43 | Day surgery (SDC) | payer MEDICARE, OTHER, SELFPAY ==
--- OUTSIDE RECORDS SUMMARY | 2024-12-19 08:51 | XMS_ITS | Clinical Summary ---
Author Organization [facility] Address [address] [place] [address] Care Team Providers Care Instructional Services Librarian Name Role Phone Davy Thompson DO Unavailable [phone] Pk Fong DO Primary Care Provider [phone] Allergies Active AllergyReactionsCriticalityNoted InmyHzyyqdwdRbaexftdeplth16/01/2023 Other Reaction(s): Unknown Sulfa AntibioticsHeadache,Nausea Only07/31/2022 Other Reaction(s): Nausea, dizziness, antsy feeling Sulfamethoxazole-Vmigdnfjetif97/15/2020 Other Reaction(s): dizziness, antsy feeling Grwqvxmbpebu94/23/2023 Other Reaction(s): Nausea, dizziness, antsy feeling Medications [...] SPRAYS IN LEFT NOSTRIL ONCE A DAY HAVHDEZP41/21/2023ctive pantoprazole (ProtoNix) 40 MG EC tablet Take [...] 4Active amLODIPine-benazepril (Lotrel) 5-10 MG capsule 1 koikheo5010/04/2023ctive amoxicillin (Amoxil) 875 MG tablet Indications:Acute bronchitis, [...] 1095Active Active Problems ProblemNoted DateDiagnosed DateBenign prostatic baflnuralyl82/19/2023enign prostatic hyperplasia with urinary oglgebjljws34/19/2023erebrovascular accident (CVA)10/27/2022astroesophageal reflux pejghfc3810/27/2022High prostate specific antigen (PSA)10/27/2022History of anticoagulant taiziva8010/27/2022Nocturia 10/27/2022ost-void awpktqvie90/19/2023Spinal cxglsybu70/19/2023Hypertension 10/27/20227005Expfpittjilfiy85/19/2023llergic ybmmdrta80/20/9589Vbxduewap24/20/2023 Chronic atrial dyoltucnsvap29/20/2023Essential lilwtpjyvtuv20/20/2023Mixed conductive and sensorineural hearing loss of left ear with restricted hearing of right ear07/28/2022Mixed yridssinympbbl87/20/5647Cwbh11/20/2023Other chronic pain07/28/2022cne hwpmass1207/28/20227463Jcrydbpihteh46/20/0329Ekpdqot26/20/2018 Perioral tfpbsycbjg76/12/2018Acquired trigger hdxasp0808/17/2017Lumbosacral spondylosis without wfuifsjyro02/29/2018Chronic pain05/06/2017 Encounters DateTypeDepartmentCare TaydDtoyxhffmam61/15/2025 1:[address] [facility] [address] [place] [address] Cherri Beatty, EXPANSION JOINT FINISHER-REMEDIATION CONSULTANT Seborrheic keratosis; Lentigines; Inflamed seborrheic keratosis; Other rosacea; Stasis dermatitis of both legs; History of actinic ymzbzzknx80/15/2025Refill [facility] [address] [place] [address] Cherri Beatty, EXPANSION JOINT FINISHER-REMEDIATION CONSULTANT Other cztxgmg3810/23/2024amboo flowsheet [facility] [address] [place] [address] Cherri Beatty, EXPANSION JOINT FINISHER-REMEDIATION CONSULTANT 10/23/20242938Oxhyea10/11/2025 11:00 AM EDTAncillary Procedure [facility] [address] [place] [address] 10/19/2024 10:10 AM EDTOffice Visit [facility] [address] [place] [address] Perry Iraheta DO Strain of neck muscle, initial encounter; Cervical paraspinal muscle spasm; History of atrial fibrillation; History of Coumadin mrdvxsy4210/19/20246756Mvjggf07/14/2025bstract [facility] [address] [place] [address] Pk Fong DO from Last 3 Months Immunizations ImmunizationAdministration DatesNext DueInfluenza, High Dose Seasonal, Preservative Free11/21/2018,11/10/2017,11/09/2016,10/30/2015Influenza, High-dose Seasonal, Quadrivalent, Preservative Free12/11/2020,10/26/2019Influenza, Seasonal, Quadrivalent, Tgwwyrvyzj69/09/2023,12/03/2021Influenza, injectable, quadrivalent, preservative free11/20/2019Influenza, seasonal, injectable 11/09/2019Pneumococcal Conjugate PCV 13006/09/2016Pneumococcal Polysaccharide [id number]-JIN-9 (COVID-19) vaccine, mRNA, spike protein, LNP, bivalent, PF12/15/2021Zoster, Yuiqdqrbldy44/09/2019 Family History Medical HistoryRelationNameCommentsNo Known VjniaiohYwihhnp4QhighqLzzhshZzckrd MotherMental illnessMotherNo Known FgarycykIom8AmkwhdrcDdypYsobipTxpmxinyBftrcul 2WecjhcDlkenklzDonhaeUxfwqxshWrg0Jaxem Social History Tobacco UseTypesPacks/DayYears UsedDateSmoking Tobacco: NeverPassive [...] drinks on one occasion?Never12/03/2022HQ-2AnswerDate RecordedPatient Health Questionnaire-2 Nppnj857/17/2024Sex and Gender InformationValueDate RecordedSex Assigned at BirthNot on fileLegal SexMale 04/22/2022 6:49 PM EDTGender IdentityNot on fileSexual OrientationNot on file Last Filed Vital Signs Vital SignReadingTime TakenCommentsBlood Tmfzsimf941/8810/19/2024 10:18 AM EDT Uibeu901310/19/2024 10:18 AM CSBSiwhvniyujf24 ??C (98.6 ??F)10/19/2024 10:18 AM EDTRespiratory Rate--Oxygen Libmpsnhfe98%10/19/2024 10:18 AM EDTInhaled Oxygen Concentration--Lzaypi11.4 kg (175 lb)10/19/2024 10:18 AM VJFArbzsc905.7 cm (5' 8 )08/03/2024 10:25 AM EDTBody Mass Index26.61008/03/2024 10:25 AM EDT Plan of Treatment DateTypeDepartmentCare Team (Latest Contact Info)Kpiqoyvisag73/22/2025 2:00 PM ESTOffice Visit [facility] [address] [place] [address] Davy Thompson DO [address] [place] [address] 01/29/2025 2:20 PM ESTOffice Visit [facility] [address] [place] [address] Elen Britt, PALAK [address] [place] [address] 10/22/2025 1:[address] [facility] [address] [place] [address] Cherri Beatty APRN-DIMPLE [address] [place] [address] Health MaintenanceDue DateLast DoneCommentsCOVID-19 Vaccine ( season) 5102/14/2021, 12/05/2020, 05/04/2020, Additional history existsInfluenza Vaccine (#1)509/12/2023, 11/16/2022, 12/03/2021, Additional history existsMedicare Annual Wellness (AWV)5103/27/2023, 12/03/2022, 06/30/2021 Pneumococcal Vaccine: 65+ FdivcJhxkcrxxy63/02/2017, 11/09/2013 Procedures Procedure NamePriorityDate/TimeAssociated DiagnosisCommentsCRYOTHERAPY SKIN VIMOGGJbtqkrz57/15/2025 1:14 PM EDT Inflamed seborrheic keratosis XR CERVICAL SPINE COMPLETE 4-5 UZAYCQUEW46/11/2025 11:09 AM EDT Strain of neck muscle, initial encounter from Last 3 Months Results * Cryotherapy, skin lesion (10/23/2024 1:14 PM EDT) Narrative Authorizing ProviderResult TypeResult StatusNatalie Francisca Beatty EXPANSION JOINT FINISHER-CNPDERM PROCEDURE ORDERABLESFinal Result * XR cervical spine [...] Davy Thompson DO [address] [address] PCP - ACO 07/02/22 Pk Fong DO [address] [facility] [address] [place] [id number] [facility]07/28/22
--- OUTSIDE RECORDS SUMMARY | 2024-12-19 08:51 | XMS_ITS | Clinical Summary ---
Author Organization [facility] Address [address] [place] [address] Phone Care Team Providers Care Plastics Engineer Name Role Phone Davy Thompson DO Primary Care Provider [phone] Allergies Active AllergyReactionsCriticalityNoted DateCommentsMetronidazoleUnknown 12/09/2022Sulfa (Sulfonamide Antibiotics)Headache,Nausea [...] by mouth see administration instructions. DIRECTED PER [facility] 60 tablet ctive ezetimibe (Zetia) [...] tablet ctive Active Problems ProblemNoted DateDiagnosed DateFormer jfwpmh024Carotid bruit present 12/09/2022hronic atrial /01/2023Essential ihshhivtwptr86/01/2023 GERD (gastroesophageal reflux disease)12/09/20224875Bhxmsacxkmpvuj82/01/2023 Srzjpfzqvlwvuj18/01/2023hest pain12/09/20223150Canlt11/01/2023MI 26.0-26.9,adult 12/09/2022 Resolved Problems ProblemNoted DateDiagnosed DateResolved DateHigh risk medication use12/09/2022 09/22/2024Overweight with body mass index (BMI) of 26 to 26.9 in adult12/09/2022 12/09/2022Overweight with body mass index (BMI) of 27 to 27.9 in adult12/09/2022 12/09/2022 Encounters DateTypeDepartmentCare BtqzNvrglyylqvc55/15/2025 1:50 PM EDTOffice Visit [place] [address] [address] Casimiro Arredondo MD Permanent atrial fibrillation (Multi) [...] HIGH-DOSE, age 65y+ (Fluzone)10/20/2023,11/21/2018,11/10/2017 ,11/09/2016,10/30/2015Influenza, Seasonal, Quadrivalent, Qjrubttzbt32/09/2023, 12/03/2021Influenza, seasonal, oldrlaqykx33/26/2022,11/09/2019Moderna COVID-19 vaccine, bivalent, blue cap/anne label *Check age/dose*12/15/2021Moderna SARS-CoV-2 Apdomzqocxe56/28/2021,05/06/2020,05/04/2020,04/06/2020,04/06/2020 Pneumococcal conjugate vaccine, 13-valent (PREVNAR 13)06/09/2016Pneumococcal polysaccharide [...] InformationValueDate RecordedSex Assigned at BirthNot on fileLegal EolAaqu41/25/2022 6:12 PM ESTGender IdentityNot on file Sexual OrientationNot on file Last Filed Vital Signs Vital SignReadingTime TakenCommentsBlood Wvlhecpr087/7208/ 1:47 PM EDT Nkvid2878 1:47 PM EDTTemperature--Respiratory Rate--Oxygen Saturation-- Inhaled Oxygen Concentration--Fzztzm56.5 kg (173 lb)09/22/2024 1:47 PM EDTHeight 172.7 cm (5' 8 )09/22/2024 1:47 PM EDTBody Mass Index26.308 1:47 PM EDT Plan of Treatment DateTypeDepartmentCare Team (Latest Contact Info)Gobmzimllxu64/14/2026 11:30 AM ESTOffice Visit [facility] [address] [facility] [address] [place] [address] Casimiro Arredondo MD 703 [facility] 2, [address] [place] [address] Health MaintenanceDue DateLast DoneCommentsHepatitis C Cwrkcedjt06/02/1964Zoster Vaccines (2 of 2)RSV High Risk: (Elderly (60+) or Population) (1 - 1-dose 75+ series)1Diabetes Ipegjenqj23/19/2022 06/26/2020, 07/13/2019, 01/02/2019, Additional history existsInfluenza Vaccine (#1)509/12/2023, 11/16/2022, 12/03/2021, Additional history exists COVID-19 Vaccine ( season)511/08/2021, 12/05/2020, 05/06/2020, Additional history existsMedicare Annual Wellness Visit (AWV) /, 12/03/2022, 06/30/2021, Additional history existsLipid Panel, 01/17/2024, 07/19/2023, Additional history exists DTaP/Tdap/Td Vaccines (2 - Td or Tdap)Pneumococcal Vaccine Opcaznola64/02/2017, 11/09/2013Irritable Bowel SspllydiPpvtjnlmxqhi32/13/2021, 10/21/2020Welcome to Medicare XgsovRqskgmyvslad53/17/2024, 12/03/2022, 06/30/2021, Additional history existsHIB VaccinesAged OutNo [...] complete this topic Procedures Procedure NamePriorityDate/TimeAssociated DiagnosisCommentsHEMOGLOBIN P1GCkamcih 06/26/2020 10:00 AM EDT LIPID RRVDCFsommaw44/05/2020 9:30 AM EST from Last 3 Months or Most Recently Relevant to Health Maintenance Results * Hemoglobin A1C (06/26/2020 10:00 AM EDT)ComponentValueRef RangeTest Method Analysis TimePerformed AtPathologist SignatureHemoglobin A1C5.5%[facility] Comment: ? Diagnosis of Diabetes-Adults Non-Diabetic: < or = 5.6% Increased risk for developing diabetes: 5.7-6.4% Diagnostic of diabetes: > or = 6.5% . ? Monitoring of Diabetes ?Age (y) ? Therapeutic Goal (%) Adults: >18 <7.0 Pediatrics: 13-18 <7.5 7-12 <8.0 ? 0- 6 ?7.5-8.5 [employer]. Diabetes Care 33(S1), Feb 2009. Estimated Average Ihycutm658XX/DLSELECT [facility]TY HOS[facility] LABSpecimen (Source)Anatomical Location / LateralityCollection Method / VolumeCollection TimeReceived Time06/26/2020 10:00 AM EDT06/26/2020 9:14 PM EDT Narrative Authorizing ProviderResult TypeResult StatusPaul Herman Thompson [facility] BLOOD ORDERABLESFinal ResultPerforming OrganizationAddressCity/State/ZIP CodePhone Number [facility] * Lipid Panel (12/14/2019 9:30 AM EST)ComponentValueRef RangeTest MethodAnalysis TimePerformed AtPathologist SneegabloLbqfrpcdwev4510 - 199 mg/dLAD[facility] LABComment: . ?AGE ?DESIRABLE ?? BORDERLINE HIGH [...] performed immediately prior to Metamizole dosing. HDL59.0mg/dLADVENTHEALTH [facility] LABComment: . ?AGE ?VERY LOW ?? LOW ? NORMAL ?HIGH ?? 0-19 Y < 35 < 40 40-45 ---- 20-24 Y ---- < 40 >45 ---- >24 Y ---- < 40 40-60 >60 . Cholesterol/HDL Ratio2.9[facility] LABComment: REF VALUES DESIRABLE < 3.4 HIGH RISK > 5.0 DKB629 - 99 mg/dLADVENTHEALTH [facility] LABComment: . ? NEAR ?BORD ?AGE ?DESIRABLE ??OPTIMAL ?HIGH ? HIGH ? VERY HIGH 0-19 Y 0 - 109 --- 110-129 >/= 130 ---- 20-24 Y 0 - 119 --- 120-159 >/= 160 ---- >24 Y 0 - 99 100-129 130-159 160-189 >/=190 . CVOK887 - 40 mg/dLAD[facility]HE[facility] NWXSibucdyuzvvfr497 - 149 mg/dLAD[facility] LABComment: . ?AGE ?DESIRABLE ?? BORDERLINE HIGH [...] BLOOD ORDERABLESFinal ResultPerforming OrganizationAddressCity/State/ZIP CodePhone Number [facility] from Last 3 Months or Most Recently Relevant to Health Maintenance Insurance MemberSubscriberPlan / Payer (Effective 2021-Present)Name:Samy Berry Jennifer Relation to Subscriber:SelfName:Samy Berry Payer ID:Not on file Type:Not on file Address: [address] [place] [id number] * Guarantor: Jamal Samygaye Gaston TypeRelation to PatientDate of BirthPhone Billing AddressPersonal/AislqaWcwe09/02/1946 [address] [place] [address] MemberSubscriberPlan / Payer (Effective 2021-Present)Name:Samy Berry Jennifer Relation to Subscriber:SelfName:Samy Berry Payer ID:Not on file Type:Not on file Address: [address] [place] [phone] Care Teams Team MemberRelationshipSpecialtyStart DateEnd Davy Thompson DO [address] [place] [address] [facility]05/17/18
--- OUTSIDE RECORDS SUMMARY | 2024-12-19 08:51 | XMS_ITS | Patient Health Record ---
Author Organization [employer] [facility] Address [address] [place], [place] [id number] Care Team Providers Care Air Chief Marshal Name Role Phone Jarad Lopez Primary Care Provider [phone] Reason For Referral No Information Medications Medication SIG (Take, Route, Frequency, Duration) Notes Start Date End Date Status Tessalon Perles 100 MG 1 capsule as need ed Orally Three times a day; Duration: as needed 04/14/2012ctiveVentolin HFA 108 (90 Base) MCG/ACT2 puffs as needed Inhalation every 4 hrs; Duration: as zzjztq3804/14/2012ctiveWarfarin SodiumActiveAugmentin 875-125 MG1 tablet Orally Twice a day; Duration: 10 day(s)04/14/2012ctive Vitamin DActiveCo Q 10ActiveVerapamil HClActiveSimvastatinActivePotassium Chloride CRActiveNexIUMActive Problems Problem Type SNOMED Code ICD Code Onset Dates Problem Status W/U Status Risk Notes Problem Acute pharyngitis (007222881) Acute phary ngitis (462) ActiveconfirmedProblemAcute bronchitis (59275652)Acute bronchitis (466.0)Active confirmed Plan Of Treatment Pending Test Test Name Order Date Quick Strep Test In-House 04/14/2012 Insurance Providers Payer Name Payer Address Payer Phone Subscriber Number Group Number Insured Name Patient Relationship to Insured Coverage Start Date Coverage End Date MEDICARE (F) [address] [place] [address] [id number] Celena Berry - patient is the insuredMedical [place] [facility])[address] [place] [id number], SamuelSelf - patient is the insured Medical (General) History Medical History History ICD Code stroke/1995 arterial fibulationSurgical History Surgery Date(Month/Year) knee, left Hospitalization History Reason Date(Month/Year) stroke pneumonia
--- OUTSIDE RECORDS SUMMARY | 2024-12-19 08:51 | XMS_ITS | Encounter Summary ---
Author Organization [facility] Address [address] [place] [address] Phone Care Team Providers Care Monument Installer Name Role Phone Davy Thompson DO Primary Care Provider [phone] Encounter Details DateTypeDepartmentCare Team (Latest Contact Info)Ztgapcsslhz32/02/1946Orders Only [facility] [address] [place] [address] Scanning, Generic Provider Social History Tobacco UseTypesPacks/DayYears UsedDateSmoking Tobacco: Never AssessedSex and Gender InformationValueDate RecordedSex Assigned at BirthNot on fileLegal Sex Male01/02/2022 6:12 PM ESTGender IdentityNot on fileSexual OrientationNot on filedocumented as of this encounter Plan of Treatment DateTypeDepartmentCare Team (Latest Contact Info)Zlsbizvnjpx08/14/2026 11:30 AM ESTOffice Visit [facility] [facility] [address] [place] [address] Casimiro Arredondo MD 7[address] [facility] 2, [address] [place], [place] [phone] NameTypePriorityAssociated DiagnosesOrder ScheduleOUTSIDE LAB SCANLabOrdered: 1945documented as of this encounter Visit Diagnoses Not on filedocumented in this encounter Care Teams Team MemberRelationshipSpecialtyStart DateEnd Date Davy Thompson DO [address] [place] [address] [facility] - General05/17/18documented as of this encounter
[2024-12-19 09:06] VITALS: BP 128/81; PULSE 86; TEMP 36.2; O2SAT 100
[2024-12-19] MEDS: GENTAMICIN SULFATE 80 MG/2 ML VIAL 120 MG IM (09:15)
[2024-12-19] MEDS: LIDOCAINE 2% JELLY 10 ML UR (10:10)
[2024-12-19] MEDS: LIDOCAINE 2% JELLY 20 ML UR (10:24)
[2024-12-19] MEDS: LIDOCAINE HCL 1% 100 MG/10 ML MDV INJ (10:30)
[2024-12-19 10:39] VITALS: BP 151/90; BP 167/89; PULSE 50; PULSE 55; O2SAT 98; O2SAT 99
--- NOTE | 2024-12-19 10:43 | PM.URSON ---
Urology Surgery Operative Note Operative Note Procedure Date: 12/19/24 Time Out Performed: yes Pre-op Diagnosis: Elevated PSA and prostate and bladder lesion by MRI Post-op Diagnosis: same as pre-op Procedures performed: 1. Cystoscopy. 2. Transrectal prostate MRI fusion biopsies Anesthesia: local and other (Periprosthetic block) Primary Surgeon: Shayan Wiseman Complications: None Estimated blood loss (mL): 5 Findings: No suspicious ultrasound findings. No bladder tumors. Specimens: 1. 6 biopsies from the area of interest sent separately labeled area of interest. 2. Mapped out biopsies from both sides. 6 from the left starting at the base going towards the apex and 6 from the right in a similar manner Drains: None Indications for Procedures: This gentleman has an elevated PSA of 4.1 and a PI-RADS 4 lesion and a bladder lesion on his MRI. He now presents for cystoscopy and transrectal ultrasound and biopsy Detailed description of Procedure: The patient was brought to the operating room and kept [facility]. He was in the supine position. Timeout was done by all parties in the room. We all agreed upon the patient's identification and the planned procedures for this patient. Genitalia were sterilely prepped and draped in the usual fashion. 2% lidocaine gel was passed per urethra. I then passed a flexible cystoscope per urethra and into the bladder. The anterior urethra was normal. Prostatic urethra revealed trilobar obstruction. Panendoscopy in the bladder revealed high-grade trabeculation diffusely. Open diverticuli diffusely. No evidence of any bladder tumors. On retroflex no new findings were noted except that some of the prostate did protrude into the bladder. The scope was then removed. We then passed a 14 Gu[place]ian red rubber catheter in the bladder and drained his bladder and this was removed. He was then repositioned into the left lateral decubitus position. The rectum was swabbed with Betadine soaked sponges several times. 2% lidocaine gel was passed per rectum. The [place] Bring Light ultrasound was passed per rectum. Segmentation was done so as to fuse the MRI images onto the live ultrasound. A 1% plain lidocaine periprosthetic block was then administered in the usual fashion. I then lined up the area of interest. 6 biopsies were taken from this area and the tissue was sent separately labeled area of interest. I then did mapped out biopsies. I started on the left side at the base and moved towards the apex. A total of 6 cores were obtained. We then did the right side in a similar manner and an additional 6 cores were obtained. At the end of the procedure we had 18 satisfactory cores. The probe was removed. He was then transferred to PACU and discharged to home in good condition.
== END 2024-12-19 10:55 | disposition home or self-care (01) ==
LOC: SURGOUT 08:49
PROVIDERS: PCP Family Medicine; Visit Provider Urology
PROC: (CPT 52000; principal; 2024-12-19 09:15)
PROC: (CPT 52000; 2024-12-19 09:15)
DX: R97.20 Elevated prostate specific antigen [PSA] (principal); N42.9 Disorder of prostate, unspecified; I48.91 Unspecified atrial fibrillation; K21.9 Gastro-esophageal reflux disease without esophagitis; I10 Essential (primary) hypertension; E78.5 Hyperlipidemia, unspecified; Z86.73 Personal history of transient ischemic attack (TIA), and cerebral infarction without residual deficits; D41.4 Neoplasm of uncertain behavior of bladder; N32.89 Other specified disorders of bladder; N40.0 Benign prostatic hyperplasia without lower urinary tract symptoms; Z80.42 Family history of malignant neoplasm of prostate
CPT/HCPCS: 52000; 55700; J1580